=== PATIENT | male | born 1985 | race Caucasian/White ===

== ENCOUNTER 2021-09-10 08:00 | Outpatient (CLI) | payer SELFPAY ==
--- NOTE | 2021-09-10 08:15 | XRAY Report ---
PROCEDURE: Toe(s) RT INDICATIONS: CELLULITIS, GREAT TOE, RIGHT TECHNIQUE: 3 views of the great toe(s) acquired. COMPARISON: None. FINDINGS: Bones: No fractures or dislocations. No suspicious bony lesions. No bony erosive changes are seen. Soft tissues: No suspicious soft tissue densities. IMPRESSION: No radiographic evidence of osteomyelitis. No fracture or dislocation. Reviewed by: Bigg Vallejo MD on 09/10/2021 8:14 AM [facility] Approved by: Bigg Vallejo MD on 09/10/2021 8:14 AM [facility] Station ID: [id number]
== END 2021-09-10 23:59 | disposition home or self-care (01) ==
LOC: DI.S 08:00
PROVIDERS: ATTEND Physician Assistant
DX: L03.031 Cellulitis of right toe (principal)